=== PATIENT | male | born 1960 | race Hispanic/Latino ===

== ENCOUNTER 2022-11-09 15:00 | Observation (INO) | payer OTHER ==
[~2022-11-09] VITALS: Ht 177.8 cm; Wt 89.0 kg
[2022-11-09 10:44] VITALS: BP 160/88
[2022-11-09 10:48] LABS: BASOPHILS % (AUTO) 0.8 % (0.0-5.0); EOSINOPHILS % (AUTO) 2.4 % (0.0-8.0); LYMPHOCYTES % (AUTO) 18.1 % (21.0-51.0); MEAN CORPUSCULAR HEMOGLOBIN 32.2 pg (27.0-33.0); MEAN CORPUSCULAR HGB CONC 32.7 g/dL (32.0-36.0); MEAN CORPUSCULAR VOLUME 98.7 fL (79-99); MONOCYTES % (AUTO) 8.7 % (3.0-13.0); NEUTROPHILS % (AUTO) 69.6 % (40.0-77.0); PLATELET COUNT (AUTO) 274 K/uL (130-400); RED BLOOD CELL COUNT(AUTO) 4.56 MIL/uL (4.50-6.20); RED CELL DISTRIBUTION WIDTH 12.8 % (11.0-15.5); WHITE BLOOD COUNT (AUTO) 11.6 K/uL (4.8-10.8)
[2022-11-09 10:59] LABS: CREATININE 0.9 mg/dL (0.5-1.5); POTASSIUM 4.4 mmol/L (3.5-5.1)
[~2022-11-09 15:00] MED LIST: ATOR20TA65 PO; GABA-529 PO; LEVO50CA4 PO; LOSA25TA41 PO; METF-446 PO; PANT40GR PO; PRED5TAB44 PO
[2022-11-11] VITALS (24 sets, daily range): BP systolic 100–151; BP diastolic 56–94
[2022-11-11] MEDS ORDERED: 0.9%NACL 1000ML 1,000 ML IV ONE (06:21)
[2022-11-11] MEDS ORDERED: CEFAZOLIN SODIUM 2 GM VIAL ONE (06:21)
[2022-11-11] MEDS ORDERED: SUCCINYLCHOLINE CHLORIDE 20 MG/ML 10 ML VIAL ONE (07:00)
[2022-11-11] MEDS ORDERED: PROPOFOL 10 MG/ML 20ML VIAL IV ONE (07:00)
[2022-11-11] MEDS ORDERED: DEXAMETHASONE SOD PHOSPHATE 10MG/ML 1ML VIAL ONE ×2 (07:00→07:02)
[2022-11-11] MEDS ORDERED: LIDOCAINE PF 100MG/5ML (2%) SYRINGE 5ML ONE (07:00)
[2022-11-11] MEDS: BUPIVACAINE/EPI/PF 0.25% 30ML VIAL IJ SCH ×2 (07:00→08:07)
[2022-11-11] MEDS ORDERED: GLYCOPYRROLATE 1 MG/5 ML SYRINGE ONE (07:01)
[2022-11-11] MEDS ORDERED: ONDANSETRON 4MG INJ ONE ×2 (07:01→07:02)
[2022-11-11] MEDS ORDERED: ROCURONIUM 10MG/1ML SYR 10 MG/ML ML ONE (07:01)
[2022-11-11] MEDS ORDERED: NEOSTIGMINE 5MG/5ML SYR IV ONE (07:01)
[2022-11-11] MEDS ORDERED: FENTANYL CITRATE PF 50 MCG/1 ML 2ML VIAL ONE ×3 (07:01→09:18)
[2022-11-11] MEDS ORDERED: MIDAZOLAM HCL 1 MG/ML 2ML VIAL ONE (07:01)
[2022-11-11] MEDS ORDERED: CEFAZOLIN SODIUM 1 GM VIAL ONE (07:03)
[2022-11-11] MEDS ORDERED: MORPHINE PF 100MG/10ML AMP IV ONE (07:04)
[2022-11-11] MEDS ORDERED: THROMBIN-JMI 5000 UNIT/VIAL TP ONE ×2 (07:04→07:06)
[2022-11-11] MEDS ORDERED: PROPOFOL 1000 MG/100 ML 100 ML IV ONE (07:07)
[2022-11-11] MEDS ORDERED: MANNITOL 20% 250ML BAG 250 ML IV ONE (07:36)
[2022-11-11] MEDS ORDERED: CEFAZOLIN SODIUM 1 GM VIAL IVPB ONE (07:40)
[2022-11-11] MEDS ORDERED: CEFAZOLIN SODIUM 2 GM VIAL IVPB ONE (10:40)
[2022-11-11] MEDS: DEXAMETHASONE SOD PHOSPHATE 4 MG/ML 1ML VIAL IVP SCH ×3 (11:00→22:57)
[2022-11-11] MEDS: LACTATED RINGERS 1000ML 1,000 ML IV SCH ×2 (11:00→15:00)
[2022-11-11] MEDS ORDERED: PROMETHAZINE HCL 25 MG/ML 1ML AMPULE IM PRN (11:00)
[2022-11-11] MEDS ORDERED: HYDROCODONE/ACETAMINOPHEN 5/325 MG TAB PO PRN (11:00)
[2022-11-11] MEDS ORDERED: 0.9%NACL 10ML VIAL IVP PRN (11:00)
[2022-11-11] MEDS ORDERED: CEFAZOLIN SODIUM 2 GM VIAL IVPB SCH ×4 (11:00→23:00)
[2022-11-11] MEDS ORDERED: MORPHINE 2 MG SYG IVP PRN (11:00)
[2022-11-11] MEDS ORDERED: ARTIFICIAL TEARS 3.5 GM OINTMENT ONE (11:13)
[2022-11-11] MEDS: GABAPENTIN 100 MG CAPSULE PO SCH ×2 (15:00→20:16)
[2022-11-11] MEDS ORDERED: METFORMIN HCL 500 MG TABLET PO SCH (17:00)
[2022-11-12] VITALS: BP 123/76
[2022-11-12 04:00] VITALS: BP 129/82
[2022-11-12] MEDS: DEXAMETHASONE SOD PHOSPHATE 4 MG/ML 1ML VIAL IVP SCH (05:58)
[2022-11-12] MEDS: BUPIVACAINE/EPI/PF 0.25% 30ML VIAL IJ SCH (06:14)
[2022-11-12] MEDS ORDERED: LEVOTHYROXINE 50 MCG TABLET PO SCH (06:30)
[2022-11-12 07:38] VITALS: BP 132/78
[2022-11-12] MEDS ORDERED: PREDNISONE 5 MG TABLET PO SCH (09:00)
[2022-11-12] MEDS ORDERED: PANTOPRAZOLE 40 MG TAB DR PO SCH (09:00)
[2022-11-12] MEDS ORDERED: LOSARTAN 25 MG TABLET PO SCH (09:00)
[2022-11-12] MEDS ORDERED: ATORVASTATIN 20 MG TABLET PO SCH (09:00)
== END 2022-11-12 09:00 | disposition home or self-care (01) ==
LOC: DAHIP 11-11 05:49 → 4AH 11-11 12:25 → EDSTATUS 11-12 15:00
PROVIDERS: ADMIT Neurological Surgery; ATTEND Neurological Surgery
DX: M48.02 Spinal stenosis, cervical region (principal); Z20.822 Contact with and (suspected) exposure to COVID-19; E11.9 Type 2 diabetes mellitus without complications; J84.10 Pulmonary fibrosis, unspecified; M25.78 Osteophyte, vertebrae; M54.10 Radiculopathy, site unspecified; Z87.891 Personal history of nicotine dependence; Z98.1 Arthrodesis status; Z79.899 Other long term (current) drug therapy; Z98.890 Other specified postprocedural states; Z79.84 Long term (current) use of oral hypoglycemic drugs
CPT/HCPCS: 80048; 85025; 87426; 36415; 71045; 93005; 22551; 20930; 96376 ×2; 96365; 96375; 82948 ×2; 72020; A6260; J1100 ×5; G0378 ×22; G0379; A4663; J7030 ×2; A4344; J3010 ×3; J0690 ×5; J3490 ×4; J2710; J0330; J2001; J2250; J2704 ×2; J2405 ×2; A4649 ×3; A6010; C1889; A4215; A4223; A4222; A4221; A4600 ×2; A4510; J2274

== ENCOUNTER → 2022-12-07 | Outpatient (CLI) | payer OTHER | END | disposition home or self-care (01) | LOC: RAH 08:25 | PROVIDERS: ATTEND Neurological Surgery | DX: M43.22 Fusion of spine, cervical region (principal); M47.812 Spondylosis without myelopathy or radiculopathy, cervical region | CPT/HCPCS: 72040 ==